=== PATIENT | female | born 1970 | race Caucasian/White ===

== ENCOUNTER → 2017-03-16 | Outpatient (CLI) | payer BC | LOC: FIMAGING 09:44 | PROVIDERS: ATTEND Surgery | DX: K76.89 Other specified diseases of liver (principal); K80.20 Calculus of gallbladder without cholecystitis without obstruction ==

== ENCOUNTER 2017-09-14 05:38 | Day surgery (SDC) | payer BC ==
[2017-09-14] MEDS ORDERED: LR 1,000 ML IV ONE (05:58)
[2017-09-14] MEDS ORDERED: LIDOCAINE 1% 2 ML INJ ID PRN (05:58)
[2017-09-14] MEDS ORDERED: ceFAZolin 2 GM/SWFI 2 GM/20 ML SYR IVP ONE (06:39)
[2017-09-14] MEDS ORDERED: MIDAZOLAM 2 MG/2 ML VIAL IVP ONE (07:00)
--- NOTE | 2017-09-14 07:02 | PDANEPAE ---
ANE Past Medical History - Cardiovascular History Hx Hypertension: Yes Hx Arrhythmias: Yes Hx Chest Pain: No Hx Coronary Artery / Peripheral Vascular Disease: No Hx CHF / Valvular Disease: No Hx Palpitations: No Cardiovascular History Comment: V-TACH. PVC'S. PLACED ON RX - Pulmonary History Hx COPD: No Hx Asthma/Reactive Airway Disease: No Hx Recent Upper Respiratory Infection: No Hx Oxygen in Use at Home: No Hx Sleep Apnea: No Sleep Apnea Screening Result - Last Documented: Negative - Neurologic History Hx Cerebrovascular Accident: No Hx Seizures: No Hx Dementia: No - Endocrine History Hx Diabetes: No - Renal History Hx Renal Disorders: No - Liver History Hx Hepatic Disorders: No - Neurological & Psychiatric Hx Hx Neurological and Psychiatric Disorders: No - Cancer History Hx Cancer: No - Congenital Disorder History Hx Congenital Disorders: No - GI History Hx Gastrointestinal Disorders: Yes Gastrointestinal History Comment: GALL STONES SYMPTOMS PAST 2 YEARS. - Chronic Pain History Chronic Pain: Yes (RUQ) - Surgical History Prior Surgeries: PARATHYROIDECTOMY ANE Review of Systems Review of Systems: - Exercise capacity METS (RN): 4 METS ANE Patient History - Allergies Allergies/Adverse Reactions: Sulfa (Sulfonamide Antibiotics) Allergy (Verified 09/06/17 10:23) Rash - Home Medications Home Medications: Lisinopril DAILY06 09/06/17 [Last Taken 09/14/17 04:55] Metoprolol Tartrate DAILY06 09/06/17 [Last Taken 09/14/17 04:55] - NPO status NPO Since - Liquids (Date): 09/13/17 NPO Since - Liquids (Time): 21:45 NPO Since - Solids (Date): 09/13/17 NPO Since - Solids (Time): 19:00 - Smoking Hx Smoking Status: Former smoker ANE Labs/Vital Signs - Vital Signs Blood Pressure: 144/87 Heart Rate: 78 Respiratory Rate: 16 O2 Sat (%): 94 Height: 167.64 cm Weight: 95.254 kg ANE Physical Exam - Airway Mallampati Score: Class 2 Mouth exam: normal dental/mouth exam - Pulmonary Pulmonary: no respiratory distress, no rales or rhonchi, clear to auscultation - Cardiovascular Cardiovascular: regular rate and rhythym, no murmur, rub, or gallop - ASA Status ASA Status: II ANE Anesthesia Plan Anesthesia Plan: general endotracheal anesthesia
[2017-09-14] MEDS ORDERED: IOTHALAMATE MEG (CONRAY) 50 ML VIAL IV ONE (07:05)
[2017-09-14] MEDS ORDERED: LIDOCAINE 1% 300 MG/30 ML SDV ONE (07:05)
[2017-09-14] MEDS ORDERED: BUPIVACAINE 0.5% 30 ML SDV ONE (07:05)
[2017-09-14] MEDS ORDERED: PROPOFOL 200 MG/20 ML VIAL ONE (07:13)
[2017-09-14] MEDS ORDERED: fentaNYL 100 MCG/2 ML INJ ONE ×2 (07:13→08:22)
[2017-09-14] MEDS ORDERED: ROCURONIUM 50 MG/5 ML VIAL ONE (07:14)
[2017-09-14] MEDS ORDERED: LIDOCAINE 2% 5 ML SDV ONE (07:14)
[2017-09-14] MEDS ORDERED: DEXAMETHASONE 4 MG/ML VIAL ONE (07:32)
[2017-09-14] MEDS ORDERED: ONDANSETRON 4 MG/2 ML VIAL ONE (07:32)
[2017-09-14] MEDS ORDERED: SUGAMMADEX SODIUM 200 MG/2 ML VIAL IVP ONE (08:14)
[2017-09-14] MEDS ORDERED: LABETALOL HCL 50 MG/10 ML SYR IVP PRN (08:16)
[2017-09-14] MEDS ORDERED: PROMETHAZINE HCL 25 MG/ML INJ IVP PRN (08:16)
[2017-09-14] MEDS ORDERED: fentaNYL 100 MCG/2 ML INJ IVP PRN (08:16)
[2017-09-14] MEDS ORDERED: ENALAPRILAT DIHYDRATE 1.25 MG/ML VIAL IVP PRN (08:16)
[2017-09-14] MEDS ORDERED: LR 500 ML IV PRN (08:16)
[2017-09-14] MEDS ORDERED: ONDANSETRON 4 MG/2 ML VIAL IVP PRN (08:16)
[2017-09-14] MEDS ORDERED: HYDROCODONE/APAP 5/325 TAB PO PRN (08:16)
[2017-09-14] MEDS ORDERED: MEPERIDINE 25 MG/ML SYR IVP PRN (08:16)
[2017-09-14] MEDS ORDERED: ACETAMINOPHEN 500 MG TAB PO PRN (08:16)
[2017-09-14] MEDS ORDERED: NALOXONE HCL 0.4 MG/ML INJ IVP PRN (08:16)
[2017-09-14] MEDS ORDERED: oxyCODONE IR 5 MG TAB PO PRN (08:30)
--- NOTE | 2017-09-14 09:38 | POSTANESTH ---
Post Anesthetic Evaluation Cardiovascular Status: Normal, Stable, Similar to Pre-Op Cond Respiratory Status: Normal, Stable, Similar to Pre-op Cond. Level of Consciousness/Mental Status: Can Participate in Eval, Alert and Oriented Pain Control: Adequate, Prn Tx Ordered Nausea/Vomiting Control: Adequate, Prn Tx Ordered Complications Possibly Related to Anesthesia: None Noted
[2017-09-14] MEDS ORDERED: ACETAMINOPHEN 325 MG TAB ONE (10:52)
[2017-09-14] MEDS ORDERED: ACETAMINOPHEN 500 MG TAB ONE (10:53)
[2017-09-14 11:04] VITALS: PULSE 80; RESP 16; O2SAT 97
[2017-09-14 11:06] VITALS: BP 111/68; TEMP 99.7
--- NOTE | 2017-09-14 15:42 | GOP ---
[f rep st] OPERATIVE REPORT DATE OF OPERATION: SURGEON: Odell Black MD TIMBER FELLER: Evelio Santiago MD. ANESTHESIOLOGIST: Paolo Domínguez MD PREOPERATIVE DIAGNOSIS: Acute cholecystitis and liver cyst. POSTOPERATIVE DIAGNOSIS: Acute cholecystitis and liver cyst. PROCEDURE PERFORMED: Laparoscopic cholecystectomy with intraoperative cholangiogram. FINDINGS: SPECIMENS: Gallbladder to Pathology. ESTIMATED BLOOD LOSS: 10 mL. INDICATIONS: This is a 46-year-old woman who presents to the hospital for elective cholecystectomy w ith cholangiogram for history of symptomatic cholelithiasis and liver cyst. DESCRIPTION OF PROCEDURE: The patient brought to the operating room. After induction of endotrachea l anesthesia in supine position, abdomen was prepped with chlorhexidine and draped sterilely. Time-o ut procedure was then performed according to the institutional standards. Local anesthetic was infus ed in skin and subcutaneous tissues and open infraumbilical trocar placement was done. The abdomen w as insufflated to 15 torr with carbon dioxide. Working trocars were placed in the subxiphoid and rig ht subcostal areas under direct visualization. The gallbladder was elevated and subsequently a large cyst was noted abutting the gallbladder off the left lobe of the liver. The gallbladder was dissect ed along the peritoneal reflection and the cystic duct was mobilized. A cholangiogram was performed with fluoroscopy showing very small ducts, but a good bifurcation, spillage of the contrast into the duodenum, no filling defects. After ensuring cholangiogram was complete, the catheter was removed. Cystic duct was triply clipped and ligated. The gallbladder was taken off the gallbladder bed with e lectrocautery. Hemostasis was assured, and the patient was awakened, extubated, taken to recovery ro om in stable condition. No immediate complications. COMPLICATIONS: There were no complications. /[id number]/MODL
== END 2017-09-14 11:25 | disposition home or self-care (01) ==
LOC: FSGY 05:38
PROVIDERS: ATTEND Surgery
PROC: BF101ZZ Fluoroscopy of Bile Ducts using Low Osmolar Contrast (ICD-10-PCS; principal; 2017-09-14 07:15)
PROC: 0FT44ZZ Resection of Gallbladder, Percutaneous Endoscopic Approach (ICD-10-PCS; principal; 2017-09-14 07:15)
PROC: 0FJB8ZZ Inspection of Hepatobiliary Duct, Via Natural or Artificial Opening Endoscopic (ICD-10-PCS; 2017-09-14 07:15)
DX: K81.2 Acute cholecystitis with chronic cholecystitis (principal); Q44.4 Choledochal cyst; K76.89 Other specified diseases of liver; E21.0 Primary hyperparathyroidism; I10 Essential (primary) hypertension; F32.9 Major depressive disorder, single episode, unspecified
CPT/HCPCS: J0690; J1100; J2250; J2405; J2704; J3010; Q9961